=== PATIENT | female | born 1965 | race Caucasian/White ===

== ENCOUNTER 2017-08-03 18:02 | Emergency (ER) | payer SELFPAY ==
[~2017-08-03] VITALS: Ht 157.5 cm; Wt 95.3 kg
[2017-08-03] MEDS ORDERED: HYDROCHLOROTHIAZIDE (18:11)
[2017-08-03] MEDS ORDERED: PAXIL (18:11)
[2017-08-03] MEDS ORDERED: LISINOPRIL (18:11)
--- NOTE | 2017-08-03 18:43 | NUR ---
Dr Gordon at the bedside for MSE.
[2017-08-03] MEDS ORDERED: MORPHINE SULFATE 2 MG/1 ML DISP.SYRIN IV ONE (19:00)
[2017-08-03] MEDS ORDERED: ONDANSETRON 4 MG/2 ML VIAL IV ONE (19:00)
[2017-08-03] MEDS ORDERED: IV NORMAL SALINE 1000 ML BAG IV ONE (19:00)
[2017-08-03 19:07] LABS: *BILIRUBIN,URIN NEGATIVE (NEGATIVE); *BLOOD, URINE 3+ (NEGATIVE); *CLARITY,URINE CLEAR (CLEAR); *COLOR,URINE YELLOW (YELLOW); *KETONES,URINE NEGATIVE (NEGATIVE); *PROTEIN,URINE NEGATIVE (NEGATIVE); *UROBILINOGEN,URINE 0.2 E.U./dl (NORMAL); LEUKOCYTE ESTERASE ,URINE NEGATIVE (NEGATIVE); NITRITE, URINE NEGATIVE (NEGATIVE); UGLUCOSE NEGATIVE (NEGATIVE)
[2017-08-03 19:14] LABS: BACTERIA,URINE FEW /HPF (NONE SEEN); RBC,URINE 0-3 /HPF (0-3); SQUAMOUS EPITHELIAL CELL,UR FEW /HPF (NONE SEEN); WBC,URINE 0-3 /HPF (0-3)
[2017-08-03] MEDS ORDERED: MORPHINE SULFATE 4 MG/1 ML DISP.SYRIN ONE (19:16)
[2017-08-03] MEDS ORDERED: ONDANSETRON 4 MG/2 ML VIAL ONE (19:16)
[2017-08-03 19:19] LABS: BASOPHILS % (AUTO) 0.3 % (0.0-2.0); EOSINOPHILS # (AUTO) 0.1 K/uL (0.0-0.7); EOSINOPHILS % (AUTO) 1.2 % (0.0-7.0); HEMATOCRIT 40.3 % (31.2-41.9); HEMOGLOBIN 13.8 g/dL (10.9-14.3); LYMPHOCYTES # (AUTO) 2.7 K/uL (20.0-40.0); LYMPHOCYTES % (AUTO) 26.7 % (20.5-51.5); MEAN CORPUSCULAR HEMOGLOBIN 29.8 uug (24.7-32.8); MEAN CORPUSCULAR HGB CONC 34 g/dL (32.3-35.6); MEAN CORPUSCULAR VOLUME 86.8 fL (75.5-95.3); MONOCYTES # (AUTO) 0.7 K/uL (2.0-10.0); MONOCYTES % (AUTO) 7.2 % (0.0-11.0); NEUTROPHILS # (AUTO) 6.4 K/uL (1.8-8.9); NEUTROPHILS % (AUTO) 64.6 % (38.5-71.5); PLATELET COUNT (AUTO) 335 K/uL (179-408); RED BLOOD CELL COUNT(AUTO) 4.65 MIL/uL (3.63-4.92)
[2017-08-03 19:23] LABS: POTASSIUM 3.1 mmol/L (3.5-5.1)
--- NOTE | 2017-08-03 19:23 | NUR ---
report received from day shift nurse. pt in bed aao x4. pt able to speak and clear sentences. able to verbalize needs. pt in bed with family member at bedside in no acute distress.
[2017-08-03 19:28] LABS: BILIRUBIN,DIRECT 0.1 mg/dL (0.0-0.2); BILIRUBIN,TOTAL 0.5 mg/dL (0.2-1.0); TOTAL PROTEIN, SERUM 8.2 g/dL (6.4-8.2)
[2017-08-03] MEDS ORDERED: IOHEXOL 300MG/ML 100 ML INFUS..BTL ONE (19:52)
[2017-08-03] MEDS ORDERED: NORMAL SALINE FLUSH 10 ML DISP.SYRIN ONE (19:52)
--- NOTE | 2017-08-03 19:55 | NUR ---
pt taken down to [place] via [place].
--- NOTE | 2017-08-03 20:15 | NUR ---
pt returned from CT, in no acute distress.
[2017-08-03] MEDS ORDERED: HYDROMORPHONE 1 MG/1 ML DISP.SYRIN IV ONE (21:00)
[2017-08-03] MEDS ORDERED: HYDROMORPHONE 1 MG/1 ML DISP.SYRIN ONE (21:15)
--- NOTE | 2017-08-03 21:52 | NUR ---
Patient discharged to home in stable conditon. Written and verbal after care instructions given with RX. Patient verbalizes understanding of instructions. Pt walked out of ER with steady and stable gait. Peripherial IV d/c.
[2017-08-03 21:56] VITALS: BP 126/84
== END 2017-08-03 21:55 | disposition home or self-care (01) ==
LOC: ER 18:03
DX: M54.16 Radiculopathy, lumbar region (principal); I10 Essential (primary) hypertension; V89.2XXA Person injured in unspecified motor-vehicle accident, traffic, initial encounter; Y92.410 Unspecified street and highway as the place of occurrence of the external cause; Y93.89 Activity, other specified; Y99.8 Other external cause status
CPT/HCPCS: 36415; 84703; 85025; A4663; J1170; J2270; J2405; J3490; J7030; Q9967